=== PATIENT | female | born 1985 | race African-American/Black ===

== ENCOUNTER → 2024-08-24 | Emergency (ER) | payer OTHER ==
[~2024-08-24] VITALS: Ht 162.6 cm; Wt 84.1 kg
[~2024-08-24] MED LIST: BUPR1TAB46 SL
[2024-08-24 15:33] VITALS: TEMP 98.8
[2024-08-24 20:08] VITALS: BP 120/69; PULSE 124; RESP 18; O2SAT 100
[2024-08-24] MEDS: BUPRENORPHINE HCL/NALOXONE HCL 8-2 MG SUBLINGUAL TABLET SL ONE (20:43)
[2024-08-24] MEDS: SODIUM CHLORIDE 0.9% 1,000 ML IV ONE (20:44)
[2024-08-24] MEDS: HALOPERIDOL LACTATE 5 MG/ML VIAL IVP ONE (20:44)
[2024-08-24 21:12] LABS: ALANINE AMINOTRANSFERASE 20 U/L (12-78); ALBUMIN 4.2 g/dL (3.4-5.0); ALKALINE PHOSPHATASE 162 U/L (46-116); ANION GAP 31 mmol/L (8-16); ASPARTATE AMINOTRANSFERASE 24 U/L (15-37); BILIRUBIN,TOTAL 2.1 mg/dL (0.1-1.0); CALCIUM, TOTAL 9.1 mg/dL (8.8-10.5); CARBON DIOXIDE 15 mmol/L (22-29); CHLORIDE 96 mmol/L (98-107); CREATININE 1.01 mg/dL (0.60-1.30); GLOMERULAR FILTR. RATE CALC > 60 mL/min (>60); GLUCOSE,RANDOM 104 mg/dL (70-110); LIPASE 16 U/L (16-77); SODIUM SERUM 142 mmol/L (136-145); TOTAL PROTEIN, SERUM 9.1 g/dL (6.4-8.2); UREA NITROGEN, BLOOD 13 mg/dL (7-18)
[2024-08-24 21:13] LABS: POTASSIUM 2.9 mmol/L (3.5-5.1)
[2024-08-24 21:21] LABS: BASOPHILS % (AUTO) 0.1 % (0.0-2.0); EOSINOPHILS % (AUTO) 0 % (1.0-6.0); HEMATOCRIT 42.3 % (36-46); HEMOGLOBIN 13.1 g/dL (12.0-16.0); LYMPHOCYTES # (AUTO) 1.1 K/uL (1.0-4.8); LYMPHOCYTES % (AUTO) 7.7 % (22.0-44.0); MEAN CORPUSCULAR HEMOGLOBIN 26.3 pg (26.0-34.0); MEAN CORPUSCULAR HGB CONC 31.1 G/dL (31.0-37.0); MEAN CORPUSCULAR VOLUME 85 fL (80-100); MONOCYTES # (AUTO) 0.4 K/uL (0.1-1.0); MONOCYTES % (AUTO) 3.1 % (2.0-9.0); NEUTROPHILS # (AUTO) 12.7 K/uL (1.8-7.7); NEUTROPHILS % (AUTO) 89.1 % (40.0-70.0); PLATELET COUNT (AUTO) 267 K/uL (150-450); RED BLOOD CELL COUNT(AUTO) 4.99 MIL/uL (4.00-5.20); RED CELL DISTRIBUTION WIDTH 15.4 % (11.5-14.5); WHITE BLOOD COUNT (AUTO) 14.2 K/uL (4.5-11.0)
[2024-08-24] MEDS: POTASSIUM CHLORIDE 20 MEQ ER TABLET PO ONE (21:51)
[2024-08-24] MEDS: POTASSIUM CHL 10 MEQ/WATER 50 ML IV ONE (21:52)
== END | disposition home or self-care (01) ==
LOC: EMS 15:30
DX: F11.23 Opioid dependence with withdrawal (principal); E87.6 Hypokalemia; R53.1 Weakness; R25.1 Tremor, unspecified; Z79.899 Other long term (current) drug therapy
CPT/HCPCS: 99284; 96365; 96361; 96375; 80048; 80076; 83690; 83735; 84703; 85025; 36415; J1630; J3480; J7030

== ENCOUNTER 2024-09-07 15:07 | Emergency (ER) | payer OTHER ==
[~2024-09-07] VITALS: Ht 165.1 cm; Wt 54.5 kg
[2024-09-07 16:00] VITALS: TEMP 98.2
[2024-09-07 17:15] VITALS: BP 105/71; PULSE 97; RESP 17; O2SAT 99
[2024-09-07] MEDS: BUPRENORPHINE HCL/NALOXONE HCL 2-0.5 MG SUBLINGUAL TABLET SL ONE (18:25)
== END 2024-09-07 19:15 | disposition home or self-care (01) ==
LOC: EMS 15:08
DX: F11.23 Opioid dependence with withdrawal (principal)
CPT/HCPCS: 99283; J0571

== ENCOUNTER 2024-10-17 08:11 | Emergency (ER) | payer OTHER ==
[~2024-10-17] VITALS: Ht 162.6 cm; Wt 68.2 kg
[2024-10-17 08:14] VITALS: TEMP 97.7
[2024-10-17 08:54] LABS: BASOPHILS % (AUTO) 0.3 % (0.0-2.0); EOSINOPHILS % (AUTO) 0.3 % (1.0-6.0); HEMATOCRIT 38.4 % (36-46); HEMOGLOBIN 12.4 g/dL (12.0-16.0); LYMPHOCYTES # (AUTO) 1.4 K/uL (1.0-4.8); LYMPHOCYTES % (AUTO) 29.8 % (22.0-44.0); MEAN CORPUSCULAR HEMOGLOBIN 24.6 pg (26.0-34.0); MEAN CORPUSCULAR HGB CONC 32.2 G/dL (31.0-37.0); MEAN CORPUSCULAR VOLUME 76 fL (80-100); MONOCYTES # (AUTO) 0.4 K/uL (0.1-1.0); MONOCYTES % (AUTO) 8.6 % (2.0-9.0); PLATELET COUNT (AUTO) 383 K/uL (150-450); RED BLOOD CELL COUNT(AUTO) 5.03 MIL/uL (4.00-5.20); RED CELL DISTRIBUTION WIDTH 15.3 % (11.5-14.5); WHITE BLOOD COUNT (AUTO) 4.9 K/uL (4.5-11.0)
[2024-10-17 09:08] LABS: ALBUMIN 2.4 g/dL (3.4-5.0); BILIRUBIN,DIRECT 0.2 mg/dL (0.00-0.20); BILIRUBIN,TOTAL 0.5 mg/dL (0.1-1.0)
[2024-10-17 09:13] LABS: ANION GAP 12 mmol/L (8-16); CALCIUM, TOTAL 8.3 mg/dL (8.8-10.5); CARBON DIOXIDE 25 mmol/L (22-29); CHLORIDE 102 mmol/L (98-107); GLOMERULAR FILTR. RATE CALC > 60 mL/min (>60); GLUCOSE,RANDOM 98 mg/dL (70-110); HCG,QUANTITATIVE < 1 mIU/mL (0-6); LIPASE 29 U/L (16-77); SODIUM SERUM 139 mmol/L (136-145); UREA NITROGEN, BLOOD 5 mg/dL (7-18)
[2024-10-17] MEDS: DICYCLOMINE HCL 10 MG CAPSULE PO ONE (09:13)
[2024-10-17] MEDS: ACETAMINOPHEN 325 MG TABLET PO ONE (09:13)
[2024-10-17 09:23] LABS: POTASSIUM 2.7 mmol/L (3.5-5.1)
[2024-10-17] MEDS: DICYCLOMINE HCL 10 MG/ML 2 ML VIAL IM ONE (09:31)
[2024-10-17] MEDS: POTASSIUM CHLORIDE 20 MEQ ER TABLET PO ONE (09:31)
[2024-10-17] MEDS: MAGNESIUM SULFATE 2 GM/WATER 50 ML IV ONE (10:50)
[2024-10-17] MEDS: POTASSIUM CHL 10 MEQ/WATER 50 ML IV ONE (10:50)
[2024-10-17 12:30] VITALS: BP 103/66; PULSE 87; RESP 18; O2SAT 100
[2024-10-18] MEDS ORDERED: LOPE1TAB PO (11:57)
== END 2024-10-17 12:50 | disposition home or self-care (01) ==
LOC: EMS 08:11
DX: R19.7 Diarrhea, unspecified (principal); R10.9 Unspecified abdominal pain; E87.6 Hypokalemia; E83.42 Hypomagnesemia
CPT/HCPCS: 99284; 96365; 80048; 80076; 83690; 83735; 84702; 85025; 36415; 96368; 96372; J0500; J3480; J3475

== ENCOUNTER 2024-10-18 09:20 | Emergency (ER) | payer OTHER ==
[~2024-10-18] VITALS: Ht 167.6 cm; Wt 72.7 kg
[2024-10-18 09:24] VITALS: BP 100/71; PULSE 82; RESP 18; TEMP 98; O2SAT 99
[2024-10-18 09:32] LABS: COVID AG,FIA SOURCE NASAL SWAB
[2024-10-18 10:03] LABS: INFLUENZA TYPE A NEGATIVE FOR TYPE A (NEGATIVE); INFLUENZA TYPE B NEGATIVE FOR TYPE B (NEGATIVE); SARS-COV2 (COVID) ANTIGEN,FIA Negative (Negative)
[2024-10-18 10:14] LABS: BASOPHILS % (AUTO) 0.3 % (0.0-2.0); EOSINOPHILS % (AUTO) 0.5 % (1.0-6.0); HEMOGLOBIN 11.7 g/dL (12.0-16.0); LYMPHOCYTES # (AUTO) 1.5 K/uL (1.0-4.8); LYMPHOCYTES % (AUTO) 34.3 % (22.0-44.0); MEAN CORPUSCULAR HEMOGLOBIN 24.3 pg (26.0-34.0); MEAN CORPUSCULAR HGB CONC 31.7 G/dL (31.0-37.0); MEAN CORPUSCULAR VOLUME 77 fL (80-100); MONOCYTES # (AUTO) 0.4 K/uL (0.1-1.0); MONOCYTES % (AUTO) 9.1 % (2.0-9.0); NEUTROPHILS # (AUTO) 2.5 K/uL (1.8-7.7); NEUTROPHILS % (AUTO) 55.8 % (40.0-70.0); PLATELET COUNT (AUTO) 355 K/uL (150-450); RED BLOOD CELL COUNT(AUTO) 4.83 MIL/uL (4.00-5.20); RED CELL DISTRIBUTION WIDTH 15.3 % (11.5-14.5); WHITE BLOOD COUNT (AUTO) 4.5 K/uL (4.5-11.0)
[2024-10-18 10:15] LABS: APPEARANCE,URINE HAZY (CLEAR); BILIRUBIN,URINE NEGATIVE (NEGATIVE); COLOR,URINE YELLOW (YELLOW); GLUCOSE, URINE (UA) NEGATIVE (NEGATIVE); KETONES,URINE NEGATIVE (NEGATIVE); LEUKOCYTE ESTERASE ,URINE NEGATIVE (NEGATIVE); NITRATE,URINE NEGATIVE (NEGATIVE); OCCULT BLOOD,URINE NEGATIVE (NEGATIVE); PROTEIN,URINE 30-70 mg/dL (NEGATIVE); SPECIFIC GRAVITIY, URINE 1.019 (1.003-1.030); UROBILINOGEN,URINE <=1.0 mg/dL (<=1.0)
[2024-10-18] MEDS: LOPERAMIDE HCL 2 MG CAPSULE PO ONE (10:18)
[2024-10-18] MEDS: DICYCLOMINE HCL 10 MG/ML 2 ML VIAL IM ONE (10:19)
[2024-10-18 10:21] LABS: HCG,QUAL URINE NEGATIVE (NEGATIVE)
[2024-10-18 10:25] LABS: ANION GAP 9 mmol/L (8-16); CALCIUM, TOTAL 8.2 mg/dL (8.8-10.5); CARBON DIOXIDE 25 mmol/L (22-29); CHLORIDE 106 mmol/L (98-107); CREATININE 0.53 mg/dL (0.60-1.30); GLOMERULAR FILTR. RATE CALC > 60 mL/min (>60); GLUCOSE,RANDOM 89 mg/dL (70-110); SODIUM SERUM 140 mmol/L (136-145); UREA NITROGEN, BLOOD 4 mg/dL (7-18)
[2024-10-18 10:28] LABS: RBC MORPHOLOGY COMMENT ABNORMAL RBC MORPH
[2024-10-18] MEDS: POTASSIUM CHLORIDE 20 MEQ ER TABLET PO ONE (11:29)
[2024-10-18] MEDS: SIMETHICONE 80 MG CHEWABLE TABLET CHEW ONE (11:29)
[2024-10-18] MEDS ORDERED: LOPE1TAB PO (11:57)
== END 2024-10-18 12:04 | disposition home or self-care (01) ==
LOC: EMS 09:23
DX: R19.7 Diarrhea, unspecified (principal); E87.6 Hypokalemia; R10.9 Unspecified abdominal pain; F17.210 Nicotine dependence, cigarettes, uncomplicated; Z20.822 Contact with and (suspected) exposure to COVID-19
CPT/HCPCS: 99284; 87426; 80048; 81003; 84703; 85025; 87804; 36415; 96372; J0500